=== PATIENT | male | born 1985 | race Caucasian/White ===

== ENCOUNTER 2016-07-08 16:16 | Emergency (ER) | payer OTHER ==
[~2016-07-08] VITALS: Ht 172.7 cm; Wt 89.4 kg
--- NOTE | 2016-07-08 18:35 | ED GENERAL ADULT ---
History of Present Illness General Chief Complaint: General Adult Stated Complaint: PT IS HAVING CLOD SWEATS,HOT FLASHES Source: patient, old records Exam Limitations: no limitations Vital Signs & Intake/Output Vital Signs & Intake/Output Vital Signs Date Time Temp Pulse Resp B/P B/P Pulse O2 O2 Flow FiO2 Mean Ox Delivery Rate 07/08 1946 98 Room Air 07/08 1920 78 140/70 07/08 1818 97.0 93 16 157/87 99 Room Air 07/08 1635 97.7 111 18 167/104 98 Room Air Allergies Coded Allergies: MDX - Amoxicillin (From AUGMENTIN) (Severe, HIVES 06/06/13) MDX - Clavulanic Acid (From AUGMENTIN) (Severe, HIVES 06/06/13) Triage Note: C/O PAIN IN LEFT SIDE OF BACK WITH HOT FLASHES, SWEATING IN GENITAL AREA, RED DOTS ON TONGUE, SWOLLEN GLANDS X 4 DAYS. (INTERMITTANT. TESTED LAST WEEK FOR STD'S, (NEGATIVE) Triage Nurses Notes Reviewed? yes Onset: Gradual Duration: day(s): (4), intermittent, resolved prior to arrival Timing: recent history Injury Environment: home Severity: mild Severity Numbers: 3 No Modifying Factors: none Associated Symptoms: DENIES HPI: This is a 31-year-old male with no medical history presents to ER for evaluation with multiple complaints. He states that he has had spots on his tongue since yesterday associated with intermittent hot flashes and chills for the past 4 days. He states he is playing soccer 4 days ago and developed left-sided flank pain that has since resolved it stopped after he was playing. He denies any dysuria urgency frequency chest pain shortness of breath. He denies any difficulty swallowing ear pain rhinorrhea congestion. He has not sought care for the symptoms. Patient is anxious on arrival and states he's been under increased stress due to recent STD testing that all came back negative he is otherwise without any complaints at this time. He does not take anything for his stress and is not taking other medications on a regular basis (RHONDA JEFF) Past History Travel History Traveled to [place] past 21 day No Medical History Any Pertinent Medical History? none Surgical History Surgical History: none Psychosocial History What is your primary language Guamanian Tobacco Use: Current Daily Use Daily Tobacco Use Amount/Type: => 5 Cigarettes daily ETOH Use: denies use Family History Hx Contributory? No (RHONDA JEFF) Review of Systems Review of Systems Constitutional: Reports: see HPI. All Other Systems: Reviewed and Negative Comments Review of systems: See HPI, All other systems negative. Constitutional, no chills no fever, no malaise no weight loss HEENT: No visual changes no sore throat no congestion, no ear pain Cardiovascular: No chest pain , no palpitation Skin: no rashes, no change in skin Respiratory: No dyspnea no cough no sputum no hemoptysis GI: No nausea no vomiting, no diarrhea, : No dysuria Muscle skeletal: No joint pain, no joint swelling, no back pain, no neck pain, Neurologic: No numbness no headache Psych: No stress no depression,. Heme/endocrine: No bruising no bleeding Immunology: No lymphadenopathy (RHONDA JEFF) Physical Exam Physical Exam General Appearance: well developed/nourished, no apparent distress, alert, awake Comments: Well-developed well-nourished person in no acute distress Head/Face: Atraumatic, no maxillary/frontal sinus tenderness, no facial swelling Eyes: PERRL, EOMI, no conjunctival injection. No nystagmus Ear:External auditory canal and Tympanic membranes clear, no erythema, no FB. Nose: atraumatic.Normal inspection Throat: Moist mucous membranes.Pharynx normal. No pharyngeal erythema/exudate seen. No stridor/drooling or assymetry. No swelling or edema. Neck: Supple, no lymphadenopathy, FROM Back: Nontender, no CVA tenderness. Full range of motion Cardiovascular: Regular rate and rhythms no murmurs rubs Respiratory: Chest nontender.There were no bony deformities, no asymmetry. No respiratory distress. Patient speaking in full complete sentences. Breath sounds clear to auscultation bilaterally: NO W/R/R Abdomen: Soft, nontender nondistended, no appreciable organomegaly. Normal bowel sounds. No rebound/guarding, Extremity: No edema, full range of motion of extremities Neuro: Alert oriented x3, motor sensory normal, There were no obvious focal neurologic abnormalities. Skin: No appreciable rash on exposed skin, skin is warm and dry. Psych: Mood and affect is normal, memory and judgment is normal. Core Measures ACS in differential dx? No CVA/TIA Diagnosis: No Severe Sepsis Present: No Septic Shock Present: No (RHONDA JEFF) Progress Differential Diagnoses I considered the following diagnoses in my evaluation of the patient: Viral syndrome [place] pharyngitis electrolyte abnormality sepsis acute kidney injury anxiety Plan of Care: Orders Procedure Date/time Status COMPREHENSIVE METABOLIC PANEL 07/08 1828 Complete CBC WITHOUT DIFFERENTIAL 07/08 1828 Complete Laboratory Tests 07/08/161837: Anion Gap 11, Estimated GFR > 60, BUN/Creatinine Ratio 11.4, Glucose 92, Calcium 9.5, Total Bilirubin 0.6, AST 22, ALT 35, Alkaline Phosphatase 82, Total Protein 7.1, Albumin 4.3, Globulin 2.8, Albumin/Globulin Ratio 1.5, CBC w Diff NO MAN DIFF REQ, RBC 5.67, MCV 83.7, MCH 27.9, RDW 15.3 H, MPV 8.7, Gran % 71.0, Lymphocytes % 22.2, Monocytes % 5.5, Eosinophils % 0.8, Basophils % 0.5, Absolute Granulocytes 7.6 H, Absolute Lymphocytes 2.4, Absolute Monocytes 0.6, Absolute Eosinophils 0.1, Absolute Basophils 0.1, PUBS MCHC 33.3 Labs ordered patient resting in no apparent distress Discussed the patient at length the spots on his tongue or the papillae on his tongue are normal there is no evidence of infection I discussed with the patient at length all of their results. I had an extensive conversation regarding need for close follow up with their primary care physician this week as well as return precautions. I answered all of their questions, they feel comfortable with the plan and follow-up care. (RHONDA JEFF) Initial ED EKG: none (RHONDA JEFF) Departure Departure Time of Disposition: 1940 Disposition: HOME OR SELF CARE Condition: Stable Clinical Impression Primary Impression: Normal exam Referrals: PATIENT HAS NO PRIMARY CARE DR (PCP/Family) Additional Instructions: Follow-up with your primary care physician this week, return with any concerns Departure Forms: Customer Survey General Discharge Information (RHONDA JEFF) PA/MANAGER CHEMICAL Co-Sign Statement Statement: ED Attending supervision documentation- [] I saw and evaluated the patient. I have also reviewed all the pertinent lab results and diagnostic results. I agree with the findings and the plan of care as documented in the PA's/MANAGER CHEMICAL's documentation. [X] I have reviewed the ED Record and agree with the PA's/MANAGER CHEMICAL's documentation. [] Additions or exceptions (if any) to the PAs/MANAGER CHEMICAL's note and plan are summarized below: [] (PREET AKHTAR,ERICH) Critical Care Note Critical Care Note Critical Care Time: non-applicable (RHONDA JEFF)
[2016-07-08 18:50] LABS: ABSOLUTE BASOPHIL COUNT 0.1 /CUMM (0.0-0.2); ABSOLUTE EOSINOPHIL COUNT 0.1 /CUMM (0.0-0.7); ABSOLUTE GRANULOCYTE CT 7.6 /CUMM (1.4-6.5); ABSOLUTE LYMPH COUNT 2.4 /CUMM (1.2-3.4); ABSOLUTE MONOCYTE COUNT 0.6 /CUMM (0.10-0.60); BASOPHIL % 0.5 % (0.0-2.0); EOSINOPHIL % 0.8 % (0-5); HEMATOCRIT 47.4 % (42-52); MEAN CORPUSCULAR HGB 27.9 PG (27.0-31.0); MEAN CORPUSCULAR HGB CONC 33.3 G/DL (33.0-37.0); MEAN CORPUSCULAR VOLUME 83.7 FL (80.0-94.0); MEAN PLATELET VOLUME 8.7 FL (7.4-10.4); PLATELET COUNT 176 /CUMM (130-400); RBC DISTRIBUTION WIDTH 15.3 % (11.5-14.5); RED BLOOD CELL CT 5.67 /CUMM (4.70-6.10); WHITE BLOOD CELL COUNT 10.7 /CUMM (4.8-10.8)
[2016-07-08 19:20] VITALS: BP 140/70
== END 2016-07-08 19:48 ==
LOC: ERH 16:16
PROVIDERS: Physician Assistant Medical
DX: Z00.00 Encounter for general adult medical examination without abnormal findings (principal)

== ENCOUNTER 2016-07-30 06:27 | Emergency (ER) | payer OTHER ==
[~2016-07-30] VITALS: Ht 172.7 cm; Wt 89.4 kg
--- NOTE | 2016-07-30 07:11 | ED GENERAL ADULT ---
History of Present Illness General Chief Complaint: Skin Rash/ Abcess Stated Complaint: RASH PER PT Source: patient, family, old records Exam Limitations: no limitations Triage Note: PT TO ED C/O WANTING A "SECOND OPINION" FOR FOLICOLITIS. PT WAS SEEN AT [facility], PT RECIEVED PRESCRIPTION FOR ANTIBIOTICS. PT THEN WENT TO APPEALS EXAMINER AND PT STATES THEY TOLD HIM TO GO TO THE DOCTOR AND GET A SECOND OPINION. Triage Nurses Notes Reviewed? yes HPI: Mr Damian is a 31-year-old gentleman past medical history of IBS and undiagnosed hypertension who came into the emergency department for a second opinion after continued diffuse rash on his back, chest, and pruritus in his genital and rectal area. Patient states that his symptoms began six months ago. On July 20 he visited [facility] clinic where he was prescribed Bactrim (14 days). He states that the Bactrim has somewhat relieved his symptoms and also endorses increased and decreased hygiene including multiple showers a day, antibacterial soaps, and talcum powder as needed. This morning he states that he still concerned about his rash and although would like to go and see a web applications developer needs a referral. This moment he denies any fever, chills, nausea, vomiting. States pruritus is worse in heat and with moisture. Currently does not have a PCP. States his previously tested for gonorrhea, chlymadia and Herpes however these have been negative. Does endorse multiple sexual partners, both male and femals and occasionally using contraception. Also states that he has a cat and dog. States that he was recent scratched by his cat on his right lower extremity. (MERCEDES AKHTAR,[facility]) Vital Signs & Intake/Output Vital Signs & Intake/Output Vital Signs Date Time Temp Pulse Resp B/P B/P Pulse O2 O2 Flow FiO2 Mean Ox Delivery Rate 07/30 0818 92 15 164/97 97 Room Air Room Air 07/30 0639 98.0 111 18 169/105 96 Room Air Allergies Coded Allergies: amoxicillin (From AUGMENTIN) (Severe, HIVES 07/30/16) clavulanic acid (From AUGMENTIN) (Severe, HIVES 07/30/16) Reconcile Medications Methylprednisolone. (Medrol) 4 MG TAB.DS.PK 1 DP PO AD PAIN 6 on day 1 then reduce by one tablet daily until gone Sulfamethoxazole/Trimethoprim (Sulfamethoxazole-Tmp Ds Tablet) 800 MG-160 MG TABLET 1 TAB PO BID ANTIBIOTIC, INFECTION (Reported) (YAZAN AKHTAR,VALENTINO Barba) Past History Travel History Traveled to [place] past 21 day No Medical History Any Pertinent Medical History? see below for history Surgical History Surgical History: none Psychosocial History [facility] do you [facility]. What is your primary language Qatari Tobacco Use: Current Daily Use Daily Tobacco Use Amount/Type: => 5 Cigarettes daily Family History Hx Contributory? Yes (MERCEDES AKHTAR,SAMIA) Review of Systems Review of Systems Constitutional: Reports: see HPI. Denies: chills, diaphoresis, fever, malaise. (MERCEDES AKHTAR,SAMIA) Physical Exam Physical Exam General Appearance: well developed/nourished, no apparent distress, alert, awake , anxious Respiratory: normal breath sounds, chest non-tender, no respiratory distress Cardiovascular: regular rate/rhythm, edema, gallop Peripheral Pulses: 4+ dorsalis pedis (R), 4+ dorsalis pedis (L) Gastrointestinal: normal bowel sounds, soft, non-tender Rectal: normal exam, hemorrhoids, Erythmatous Back: normal range of motion, Diffuse Erythmetous rash, Macular rash. Extremities: normal inspection, no edema, Scratch on right toe. Neurologic/Psych: no motor/sensory deficits, awake, alert, oriented x 3 Core Measures ACS in differential dx? No CVA/TIA Diagnosis: No Severe Sepsis Present: No Septic Shock Present: No (MERCEDES AKHTAR,SAMIA) Progress Differential Diagnoses I considered the following diagnoses in my evaluation of the patient: STD, syphillis, Allergic Reaction, Dermatitis. Initial ED EKG: none (MERCEDES AKHTAR,SAMIA) Plan of Care: Orders Procedure Date/time Status VDRL 07/30 0738 Active Laboratory Tests 07/30/16 0807: RPR Titer/FTA Pending Departure Departure Condition: Stable Departure Forms: Customer Survey General Discharge Information (MERCEDES AKHTAR,SAMIA) Departure Disposition: HOME OR SELF CARE Clinical Impression Primary Impression: Eczema Qualifiers: Eczema type: unspecified Qualified Code: L30.9 - Dermatitis, unspecified Referrals: LIZBETH AKHTAR,[facility] PATIENT HAS NO PRIMARY CARE DR (PCP/Family) MEREDITH AKHTAR,ANNABELLE Ritchie Additional Instructions: Medrol Dosepak as prescribed. Continue the antibiotics as prescribed. Moisturizing lotion to the rash on your back. Monitor the groin rash for worsening in which case an antifungal cream should be considered. Follow-up with one of the dermatologists listed. Contact the [facility] practice for a primary care physician as soon as possible for general medical evaluation. Return if any concerns or sudden worsening. Prescriptions: Current Visit Scripts Methylprednisolone. (Medrol) 1 DP PO AD #1 DP 6 on day 1 then reduce by one tablet daily until gone Resident Co-Sign Statement Statement: ED Attending supervision documentation- [x] I saw and evaluated the patient. I have also reviewed all the pertinent lab results and diagnostic results. I agree with the findings and the plan of care as documented in the Resident's documentation. Patient states rash on back for 6 months. Has been on Bactrim with little improvement. Has a personal and family history of eczema. We will provide Medrol Dosepak for possibility of eczema. [] I have reviewed the ED Record and agree with the Resident's documentation. [] Additions or exceptions (if any) to the Resident's note and plan are summarized below: [] (YAZAN AKHTAR,VALENTINO Barba) Critical Care Note Critical Care Note Critical Care Time: non-applicable (MERCEDES AKHTAR,SAMIA)
[2016-07-30] MEDS ORDERED: SULFAMETHOXAZO1 EAC1 PO (07:59)
[2016-07-30] MEDS ORDERED: MEDROL4 M2 PO (08:11)
[2016-07-30 08:18] VITALS: BP 164/97
== END 2016-07-30 08:23 ==
LOC: ERH 06:27
DX: L30.9 Dermatitis, unspecified (principal)